=== PATIENT | male | born 1975 | race Caucasian/White ===

== ENCOUNTER 2016-11-05 13:52 | Emergency (ER) | payer BC ==
--- NOTE | ~2016-11-05 | CT2 ---
[facility]. [facility] A Service of [facility] RADIOLOGY TEXT RESULTS PATIENT: EDOUARD CORREA LOCATION: [facility] : 79 UNIT #: [id number] AGE: [address]: Mario Delvalle MD SEX: M ORDER DR: [id number] [facility] [address] [facility]. [place], [place] [address] [id number] E MR#: [id number] Acc #: [id number] NAME: EDOUARD CORREA : 1975 SEX: M STUDY DATE/TIME: 11/05/2016 15:52 UNIT: [facility] ROOM: STUDY DESCRIPTION: CT Abd and Pelv W Cont Attending Physician: Mario Delvalle M.D. Ordering Physician: Michael Shi D.O. Primary Care Physician: Primary Care Physician No MEDICAL IMAGING REPORT This report is preliminary unless electronic signature is present EXAM CT abdomen and pelvis with contrast INDICATIONS Generalized abdominal pain since this morning. PROCEDURE Contrast-enhanced CT of the abdomen and pelvis. 100 mL of Isovue-370. This CT exam was performed with one or more of the following radiation dose reduction techniques: Automatic exposure control, adjustment of mA and/or kV according to patient size, and iterative reconstruction. COMPARISON 08/12/2016 FINDINGS ABDOMEN WITH CONTRAST: The included lung bases are clear. Hemangioma posterior right hepatic lobe measures 3.3 cm and is similar to the previous study. The spleen, kidneys, adrenal glands, pancreas, gallbladder unremarkable. Postsurgical change with creation of a J pouch. Inflammatory thickening of the bowel leading to the J pouch is very similar to the previous study. A few mildly prominent lymph nodes adjacent to this segment and extending into the mesenteric root are unchanged and presumed to be reactive. There is a focal intussusception in the left upper quadrant of the abdomen, no evidence for proximal bowel distension. There is no abdominal fluid collection. PELVIS WITH CONTRAST: No organized pelvic fluid collection. No aggressive appearing bone lesion. IMPRESSION 1. Findings are very similar to 08/12/2016. There is inflammatory [facility] A Service of [facility] RADIOLOGY TEXT RESULTS PATIENT: EDOUARD CORRE[id number] [birth year] UNIT #: [id number] AGE: [address]: Mario Delvalle MD SEX: M ORDER DR: thickening of bowel leading to the patient's J pouch. This is stable. There is no evidence for bowel obstruction or abscess. 2. Presumed reactive, mildly prominent nodes in the mesentery and in the pelvis are unchanged. Dictated by... Mihai Osorio M.D. THIS IS AN ELECTRONICALLY VERIFIED REPORT Mihai Osorio M.D. at 11/06/2016 6:57 AM EED/piyush TD: 11/05/2016 23:20 JOB #: [id number] MEDICAL IMAGING REPORT COPY
[2016-11-05 13:42] LABS: BASOPHIL# 0.1 X10e3 (0-0.3); BASOPHIL% 0.7 % (0-2.5); EOSINOPHIL# 0.1 X10e3 (0-0.7); EOSINOPHIL% 0.8 % (0.0-7.0); HEMATOCRIT 36.8 % (38.0-50.0); HEMOGLOBIN 12.4 gm/dL (13.0-16.0); LYMPHOCYTE# 1.9 X10e3 (1.0-3.5); LYMPHOCYTE% 15.3 % (17.0-45.0); MEAN CELL VOLUME 82.9 FL (83-96); MEAN CORPUSCULAR HEMOGLOBIN 27.9 PG (28-34); MEAN CORPUSCULAR HGB CONC 33.6 g/dL (30-36); MEAN PLATELET VOLUME 6.4 FL (6.5-11.5); MONOCYTE% 7.8 % (3.0-12.0); NEUTROPHIL# 9.2 X10e3 (1.5-7.1); NEUTROPHIL% 75.4 % (40-75); PLATELET COUNT 394 X10e3 (140-420); RED BLOOD COUNT 4.44 X10e (3.90-5.60); RED CELL DISTRIBUTION WIDTH 13.7 % (11.0-15.5); WHITE BLOOD COUNT 12.2 X10e3 (4.0-10.5)
[2016-11-05 13:51] LABS: DIFF IND NO
[2016-11-05 14:32] LABS: ALKALINE PHOSPHATASE 430 U/L (32-92); ALT (SGPT) 86 U/L (10-40); AMYLASE 26 U/L (0-46); AST (SGOT) 71 U/L (10-42); BILIRUBIN, DIRECT 0.1 mg/dL (0.0-0.2); BILIRUBIN,INDIRECT 0.5 mg/dL (0.0-0.9); BILIRUBIN,TOTAL 0.6 mg/dL (0.2-2.0); BLOOD UREA NITROGEN 15 mg/dL (9-23); CALCIUM SERUM 8.6 mg/dL (8.4-10.2); CARBON DIOXIDE 24 mmol/L (22-31); CHLORIDE 106 mmol/L (100-111); GLOM FILT RATE Estimated ABOVE60 mL/min (>60); GLUCOSE FASTING 94 mg/dL (70-110); LIPASE 27 U/L (22-51); POTASSIUM 4.1 mmol/L (3.5-5.1); SODIUM 139 mmol/L (135-145)
[2016-11-05 15:04] LABS: URINE SOURCE CLEAN CATCH
[2016-11-05 15:13] LABS: URINE APPEARANCE CLEAR; URINE BILIRUBIN NEG (NEG); URINE BLOOD NEG (NEG); URINE COLOR YELLOW; URINE GLUCOSE NEG (NEG); URINE KETONE NEG (NEG); URINE LEUKOCYTE ESTERASE NEG (NEG); URINE NITRATE NEG (NEG); URINE PROTEIN NEG (NEG); URINE SPECIFIC GRAVITY 1.018 (1.003-1.035); URINE UROBILINOGEN 0.2 MG/DL (NEG)
[2016-11-05 15:21] LABS: CULTURE INDICATED? NO
[2016-11-05 15:37] LABS: AMPHETAMINE NEG (NEG); BARBITURATES NEG (NEG); BENZODIAZEPINES NEG (NEG); COCAINE NEG (NEG); MARIJUANA NEG (NEG); OPIATES NEG (NEG); TRICYCLIC ANTIDEPRESSANTS NEG (NEG); U METHADONE NEG (NEG)
== END 2016-11-05 17:22 | disposition home or self-care (01) ==
LOC: CED 13:52
PROVIDERS: Emergency Medicine
DX: K50.90 Crohn's disease, unspecified, without complications (principal); F17.200 Nicotine dependence, unspecified, uncomplicated; Z88.8 Allergy status to other drugs, medicaments and biological substances
CPT/HCPCS: 36415; 74177; 80048; 80076; 80307; 81003; 82150; 83690; 85025; 96361; 96374; 96375; 96376; 99284; J1170; J2405; Q9967